=== PATIENT | female | born 1930 | race Caucasian/White ===

== ENCOUNTER 2017-01-20 12:44 | Emergency (ER) | payer MEDICARE ==
[2017-01-20] MEDS ORDERED: ALBUTEROL NEB 2.5 MG/3 ML VIAL.NEB NEB ONE (13:19)
[2017-01-20] MEDS ORDERED: FUROSEMIDE 40 MG/4 ML VIAL ONE (13:35)
[2017-01-20] MEDS ORDERED: ASPIRIN CHEWTAB 81 MG TABLET ONE (13:35)
[2017-01-20] MEDS ORDERED: ONDANSETRON 4 MG/2ML 2 ML VIAL ONE (13:35)
[2017-01-20] MEDS ORDERED: MAALOX/LIDO2%VISC/SIMETHICONE 40 ML BOT ONE ×2 (13:42→15:10)
[2017-01-20 13:49] LABS: ABSOLUTE NEUTROPHIL COUNT 9.7 K/mm3 (1.8-7.7); BASO % 0.3 % (0.2-1.0); EOS % 0.2 % (0.9-2.9); HEMATOCRIT 38.6 % (37.0-47.0); HEMOGLOBIN 12.5 gm/l (12.0-16.0); IMM NEUT% 0.3 % (0-1); LYMPH # 1.2 (1.0-4.8); LYMPH % 10.3 % (15-45); MEAN CORPUSCULAR HEMOGLOBIN 27.5 pg (27.0-31.0); MEAN CORPUSCULAR HGB CONC 32.4 g/dl (33.0-37.0); MEAN PLATELET VOLUME 10.1 fl (7.4-10.4); MONO # 0.6 (0.0-0.8); NEUT % 83.9 % (43-75); PLATELET COUNT 313 K/mm3 (130-400); RED CELL DISTRIBUTION WIDTH 14.4 % (11.5-14.5)
[2017-01-20 14:04] LABS: ALB/GLOB RATIO 1.3 (>1.0); ALBUMIN 3.3 gm/dL (3.5-5.7); CALCIUM 10.1 mg/dL (8.6-10.3); TROPONIN I 0.05 ng/ml (0.0-0.06)
[2017-01-20 14:07] LABS: CKMB ISOENZYME 2.6 ng/ml (0.6-6.3)
--- NOTE | 2017-01-20 14:07 | RAD ---
History: Weakness. Comparison: 04/30/2015. 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 There is absence of the distal left clavicle which may be due to remote trauma. The appearance is stable from the appearance on prior exam. The heart size is borderline prominent. No gross consolidation is seen. There is blunting of the posterior costophrenic sulci suggesting small amounts of pleural fluid or pleural thickening. The hilar and mediastinal structures are intact. Impression: 1. Stable borderline cardiomegaly. 2. Blunting of the posterior costophrenic sulci suggesting small amounts of pleural fluid or pleural thickening. 3. Lysis of the distal left clavicle which may be due to remote trauma. 4. A likely chronic right rotator cuff tear.
[2017-01-20 15:10] LABS: URINE APPEARANCE HAZY; URINE BILIRUBIN NEGATIVE (NEGATIVE); URINE BLOOD 2+ (NEGATIVE); URINE COLOR YELLOW; URINE GLUCOSE (UA) NEGATIVE (NEGATIVE); URINE LEUKOCYTE ESTERASE 2+ (NEGATIVE); URINE NITRITE NEGATIVE (NEGATIVE); URINE PROTEIN NEGATIVE (NEGATIVE); URINE UROBILINOGEN NORMAL (0-1 mg/dl)
[2017-01-20] MEDS ORDERED: ACETAMINOPHEN 325 MG TABLET ONE (15:10)
[2017-01-20] MEDS ORDERED: PANTOPRAZOLE 40 MG TABLET DR PO ONE (15:10)
[2017-01-20 15:22] LABS: URINE BACTERIA 1+; URINE RBC 0 /hpf
== END 2017-01-20 15:19 | disposition home or self-care (01) ==
LOC: ED 12:44
DX: R05 Cough (principal); R11.10 Vomiting, unspecified; J45.909 Unspecified asthma, uncomplicated; R60.0 Localized edema
CPT/HCPCS: 83880; 85025; 82550; 82553; 87086; 80053; 84484; 81001; 71020; 94640; 94664; 96375; 99284 ×2; 96374; 93005; A9270 ×5; J1940; J2405